=== PATIENT | male | born 1975 | race Caucasian/White ===

== ENCOUNTER 2024-09-01 07:38 | Outpatient (RCR) | payer OTHER, SELFPAY ==
[2024-08-13 15:12] LABS: Lactate Dehydrogenase 177 U/L (85-227)
[2024-08-14 06:08] LABS: HBsAg Screen Negative (Negative); HCV Ab Non Reactive (Non Reactive); HIV Ab/p24 Ag Screen Non Reactive (Non Reactive); Hep B Core Ab, Tot Negative (Negative); Hepatitis B Surf Ab Quant <3.5 mIU/mL (Immunity>10)
[2024-08-14 13:07] LABS: ANA Direct Positive (Negative); Anti-Centromere B Antibodies <0.2 AI (0.0-0.9); Anti-DNA (DS) Ab Qn 16 IU/mL (0-9); Anti-Jo-1 <0.2 AI (0.0-0.9); Antichromatin Antibodies <0.2 AI (0.0-0.9); Antiscleroderma-70 Antibodies <0.2 AI (0.0-0.9); RNP Antibodies <0.2 AI (0.0-0.9); Sjogren's Anti-SS-A <0.2 AI (0.0-0.9); Sjogren's Anti-SS-B <0.2 AI (0.0-0.9)
[2024-08-17 21:06] LABS: Anti-MPO Antibodies 6.6 units (0.0-0.9); Anti-PR3 Antibodies <0.2 units (0.0-0.9); Cytoplasmic (C-ANCA) <1:20 titer (Neg:<1:20); Perinuclear (P-ANCA) <1:20 titer (Neg:<1:20)
[2024-08-18 08:09] LABS: Immunoglobulin A, Qn, Serum 195 mg/dL (90-386); Immunoglobulin E, Total 12 IU/mL (6-495); Immunoglobulin G, Qn, Serum 2055 mg/dL (603-1613); Immunoglobulin M, Qn, Serum 155 mg/dL (20-172)
[2024-09-01 11:45] LABS: Hematocrit 45.4 % (42.0-54.0); Hemoglobin 15.4 g/dL (14.0-18.0); Mean Corpuscular HGB Conc 33.9 g/dL (29.9-35.2); Mean Corpuscular Hemoglobin 30.6 pg (25.9-34.0); Mean Corpuscular Volume 90.1 fL (80.0-94.0); Mean Platelet Volume 11.9 fL (9.5-13.5); Platelet Count 184 10^3/uL (150-450); Red Blood Count 5.04 10^6/uL (4.70-6.10); Red Cell Distribution Width 12.2 % (11.0-15.0); White Blood Count 2.5 10^3/uL (4.0-11.0)
[2024-09-01 12:02] LABS: Eosinophils Absolute Manual 0.02 10^3/uL (0.00-0.70); Lymphocytes Absolute Manual 1.75 10^3/uL (1.20-3.80); Segmented Neut Absolute Manual 0.42 10^3/uL (1.4-6.5)
[2024-09-03 08:10] LABS: Anti-MPO Antibodies 7.6 units (0.0-0.9); Anti-PR3 Antibodies <0.2 units (0.0-0.9); Cytoplasmic (C-ANCA) <1:20 titer (Neg:<1:20); Perinuclear (P-ANCA) <1:20 titer (Neg:<1:20)
== END 2024-09-02 11:10 | disposition home or self-care (01) ==
LOC: HEMC 07:38
PROVIDERS: Visit Provider Internal Medicine Hematology & Oncology
DX: D72.819 Decreased white blood cell count, unspecified (principal); F17.210 Nicotine dependence, cigarettes, uncomplicated; L98.9 Disorder of the skin and subcutaneous tissue, unspecified
CPT/HCPCS: 36415; 82784; 82785; 83516; 83615; 85007; 85027; 86037; 86038; 86225; 86235; 86317; 86704; 87340; 87389; 87517; 87522; 88184; 88185; 99999; G0463

== ENCOUNTER 2024-12-01 07:39 | Outpatient (RCR) | payer OTHER, SELFPAY | END 2024-12-02 23:59 | disposition home or self-care (01) | LOC: HEMC 07:39 | PROVIDERS: Visit Provider Internal Medicine Hematology & Oncology | DX: D72.819 Decreased white blood cell count, unspecified (principal); D72.820 Lymphocytosis (symptomatic); R21 Rash and other nonspecific skin eruption; M85.9 Disorder of bone density and structure, unspecified; R76.0 Raised antibody titer; F17.210 Nicotine dependence, cigarettes, uncomplicated; R53.82 Chronic fatigue, unspecified; F14.91 Cocaine use, unspecified, in remission | CPT/HCPCS: G0463 ==

== ENCOUNTER 2025-05-04 13:41 | Outpatient (RCR) | payer OTHER, SELFPAY | END 2025-05-04 23:59 | disposition home or self-care (01) | LOC: HEMC 13:41 | PROVIDERS: Visit Provider Internal Medicine Hematology & Oncology | DX: D72.819 Decreased white blood cell count, unspecified (principal); D72.820 Lymphocytosis (symptomatic); F17.210 Nicotine dependence, cigarettes, uncomplicated; L98.9 Disorder of the skin and subcutaneous tissue, unspecified | CPT/HCPCS: G0463 ==